=== PATIENT | female | born 1975 | race American Indian/Alaskan Native ===

== ENCOUNTER 2020-12-12 07:57 | Day surgery (SDC) | payer MEDICARE | END 2020-12-12 15:45 | disposition home or self-care (01) | LOC: OR 07:57 | DX: I12.0 Hypertensive chronic kidney disease with stage 5 chronic kidney disease or end stage renal disease (principal); N18.6 End stage renal disease; F41.9 Anxiety disorder, unspecified; Z98.890 Other specified postprocedural states; Z79.899 Other long term (current) drug therapy; Z86.2 Personal history of diseases of the blood and blood-forming organs and certain disorders involving the immune mechanism | CPT/HCPCS: 36415; 36821; 64415; 80048; 81025; 85027; C1757; J0690; J1644; J2250; J2405; J2704; J2720; J3010; J7030; J7040 ==

== ENCOUNTER 2021-05-13 08:30 | Day surgery (SDC) | payer MEDICARE ==
[2021-05-13] MEDS ORDERED: SODIUM CHLORIDE 0.9% 500 ML 500 ML IV SCH (09:00)
[2021-05-13] MEDS ORDERED: ceFAZolin/Water 2 GM/20 ML 2 GM/20 ML SYRINGE IV ONE (11:03)
[2021-05-13] MEDS ORDERED: MIDAZOLAM 2 MG/2 ML INJ ONE (11:03)
[2021-05-13] MEDS ORDERED: fentaNYL 100 MCG/2 ML INJ ONE (11:03)
[2021-05-13] MEDS ORDERED: HEPARIN/NS 5000 UNIT/500ML 1,000 ML IR ONE (11:04)
[2021-05-13] MEDS ORDERED: HEPARIN 10,000 UNITS/10 ML VIAL ONE (11:04)
[2021-05-13] MEDS ORDERED: LIDOCAINE (2%) 20 MG/1 ML VIAL 20 ML MDV INFILTRATI ONE (11:05)
[2021-05-13] MEDS ORDERED: NITROGLYCERIN SYRINGE 3 ML ONE (11:05)
[2021-05-13] MEDS ORDERED: VERAPAMIL 5 MG/2 ML INJ ONE (11:05)
[2021-05-13] MEDS ORDERED: ceFAZolin/STERILE WATER 2 GM/20 ML SYRINGE IV ONE (11:32)
[2021-05-13] MEDS ORDERED: SODIUM CHLORIDE 0.9% 1000 ML 1,000 ML ONE (11:34)
[2021-05-13] MEDS ORDERED: fentaNYL 100 MCG/2 ML INJ IV ONE (11:42)
[2021-05-13] MEDS ORDERED: MIDAZOLAM 2 MG/2 ML INJ IV ONE (11:42)
--- NOTE | 2021-05-13 13:21 | Short Stay Summary ---
Short Stay Documentation Date of service: 05/13/21 Narrative H&P: See Short Stay Record - Allergies and Medications Current Medications: Allergies No Known Allergies Allergy (Verified 12/08/20 13:45) Home Medications Medication Instructions Recorded Confirmed Last Taken Type Losartan [Cozaar] 100 mg PO QDAY 12/08/20 05/13/21 05/12/21 History 100 mg Sevelamer Carbonate [Renvela] 2,400 mg PO TIDWM 12/08/20 05/13/21 05/12/21 Hist ory 2400 mg Folic Acid [Folvite] 1 mg PO DAILY 05/13/21 05/13/21 05/12/21 History 1 mg Vit B Comp No.3/Folic/C/Biotin 1 tab PO DAILY 05/13/21 05/13/21 05/12/21 History [Nephro-Issa Rx Tablet] 1 tab Active Medications Sodium Chloride (Nacl 0.9% 500 Ml) 500 mls @ 50 mls/hr IV DIRECT OMARI - Brief post op/procedure progress note Date of procedure: 05/13/21 Pre-op diagnosis: Complications of Dialysis Access Post-op diagnosis: same Procedure: 1. Access Left Arm AV Fistula with 7 [place] Sheath Venous 2. Access Left Arm AV Fistula with 6 [place] Sheath Arterial 3. Diagnostic Left Arm Fistulogram with Central Venogram 4. Catheter in Left Radial Artery 5. Diagnostic Left Upper Extremity Angiogram 6. Angioplasty of Left Arm AV Fistula with 7 x 40 [place] Balloon In the Venous Outflow and 6 x 100 Angiosculpt Balloon with 6 x 80 IN.PACT Drug-Coated Balloon In the Arterial Inflow 7. Radiologic Supervision with Interpretation 8. Monitored Moderate Sedation (Total Anesthesia Time: 56 Minutes) Anesthesia: local, other (Monitored moderate sedation) Surgeon: TRISTIAN BOURGEOIS Estimated blood loss: minimal Pathology: none Condition: stable - Disposition Condition at discharge: Good Disposition: 01 HOME / SELF CARE / HOMELESS Short Stay Discharge Plan Wound: remove dressing (Remove dressings tomorrow during dialysis. Remove the sutures by pulling the longer of the 2 strings.)
[2021-05-13] MEDS ORDERED: HYDROcodone/ACETAMINOPHEN 5-325 MG TAB PO PRN (13:23)
--- NOTE | 2021-05-13 13:33 | Operative Report ---
Operative Report Operative Report: Date of Procedure: 05/13/2021 Pre-operative Diagnosis: Complications of Dialysis Access Post-operative Diagnosis: Same Procedure(s): 1. Access Left Arm AV Fistula with 7 [place] Sheath Venous 2. Access Left Arm AV Fistula with 6 [place] Sheath Arterial 3. Diagnostic Left Arm Fistulogram with Central Venogram 4. Catheter in Left Radial Artery 5. Diagnostic Left Upper Extremity Angiogram 6. Angioplasty of Left Arm AV Fistula with 7 x 40 [place] Balloon In the Venous Outflow and 6 x 100 Angiosculpt Balloon with 6 x 80 IN.PACT Drug-Coated Balloon In the Arterial Inflow 7. Radiologic Supervision with Interpretation 8. Monitored Moderate Sedation (Total Anesthesia Time: 56 Minutes) Surgeon: Huey Leung M.D. Manager Math: Dominick Anesthesia: Monitored Moderate Sedation Total Anesthesia Time: 56 Minutes EBL: Minimal Counts: Correct Complications: None Condition: Stable Specimen: None Indication: The patient is a 45-year-old female with history of end-stage renal disease who is currently on hemodialysis through a left Joey arteriovenous fistula. She presents with complaints of difficult cannulation during dialysis and reports of pulling clots. She is in need of a diagnostic fistulogram with possible intervention. She has been given the risk, benefits, and alternative procedures and consented to the procedure. Angiographic Findings: The diagnostic fistulogram revealed approximately 50% stenosis in the segment of the venous cannulation. The remainder of the cannulation zone appeared patent without significant flow-limiting stenosis. The cephalic vein in the upper arm was occluded however the basilic vein as well as the brachial veins were patent without evidence of flow-limiting stenosis. The axillary vein as well as the central venous system was patent without evidence of significant flow-limiting stenosis. Diagnostic left lower extremity arteriogram revealed the proximal radial artery was patent without significant flow-limiting stenosis. There was approximately 50% stenosis of the radial artery just proximal to the anastomosis with approximately 75% stenosis of the anastomosis as well as approximately 60% stenosis in the arterial inflow of the fistula. After intervention the distal radial artery as well as the arterial anastomosis and inflow of the fistula were patent with less than 15% residual stenosis. The cannulation zone of the fistula was patent with less than 15% residual stenosis. Description of Procedure: The patient was brought to the [facility] and laid in supine position. After a timeout was performed her left arm was prepped and draped in normal sterile fashion. Lidocaine was used to anesthetize the skin and soft tissue overlying the fistula near the arterial inflow and a 21-gauge micropuncture needle was used access the fistula towards the venous outflow. A 0.018 micropuncture wire was advanced to the fistula and after removing the needle a 7 [place] sheath was placed by Seldinger technique. A diagnostic fistulogram with central venogram was performed with the previously described findings. I advanced the 0.035 J- wire into the fistula and performed angioplasty of the venous outflow of the fistula with a 7 x 40 [place] Balloon with a result of less than 15% residual stenosis. I then anesthetized the skin and soft tissue overlying the fistula near the venous outflow and accessed the fistula using a 21-gauge micropuncture needle towards the arterial inflow. I advanced the 0.018 micropuncture wire into the fistula and after removing the needle placed a 6 [place] sheath by Seldinger technique. I used a 0.035 floppy Glidewire and vertebral catheter to cannulate the radial artery and advanced the catheter and wire into the proximal radial artery. I remove the wire and performed a diagnostic angiogram with the previously described findings. I then advanced the 0.014 [place] Wire into the brachial artery and performed angioplasty of the distal radial artery as well as the anastomosis using a 6 x 100 Angiosculpt Balloon followed by angioplasty with a 6 x 80 IN.PACT Drug-Coated Balloon, to prevent significant scarring of the anastomosis. This resulted in an less than 15% residual stenosis. I used the 7 x 40 [place] Balloon to perform angioplasty of a short segment of the arterial inflow of the fistula which resulted in less than 15% residual stenosis. At that point all balloons and wires were removed and 2-0 Ethilon in slipknot fashion was used to close each entry site after moving the s jin. Sterile dressings were then applied to the entry sites and the patient was transported to the recovery area in stable condition.
[2021-05-13 13:51] VITALS: BP 123/77
== END 2021-05-13 14:30 | disposition home or self-care (01) ==
LOC: CATHLABREC 08:30
PROVIDERS: ATTEND Surgery Vascular Surgery
DX: T82.898A Other specified complication of vascular prosthetic devices, implants and grafts, initial encounter (principal); N18.6 End stage renal disease; Z99.2 Dependence on renal dialysis; Z79.899 Other long term (current) drug therapy; Z98.890 Other specified postprocedural states; Y83.8 Other surgical procedures as the cause of abnormal reaction of the patient, or of later complication, without mention of misadventure at the time of the procedure
CPT/HCPCS: 36415; 36902; 84132; 99156; 99157; C1725; C1751; C1769; C1894; C2623; J0690; J1644; J2250; J3010; J7030; Q9967